=== PATIENT | male | born 2000 | race African-American/Black ===

== ENCOUNTER 2019-10-12 12:24 | Emergency (ER) | payer MEDICAID, OTHER ==
[~2019-10-12] VITALS: Ht 172.7 cm; Wt 69.0 kg
[2019-10-12 12:25] VITALS: BP 132/57
[2019-10-12] MEDS ORDERED: IBUPROFEN 600MG TABLET PO STA (13:14)
[2019-10-12] MEDS ORDERED: BACITRACIN ZINC OINT UDPKT TOP ONE (14:15)
== END 2019-10-12 14:52 | disposition home or self-care (01) ==
LOC: ER 12:50
DX: S80.02XA Contusion of left knee, initial encounter (principal); J45.909 Unspecified asthma, uncomplicated; F12.10 Cannabis abuse, uncomplicated; V49.88XA Car occupant (driver) (passenger) injured in other specified transport accidents, initial encounter; Y93.89 Activity, other specified; Y92.89 Other specified places as the place of occurrence of the external cause; Y99.8 Other external cause status
CPT/HCPCS: 73560; 99283; Z7610